=== PATIENT | female | born 1950 | race Caucasian/White ===

== ENCOUNTER → 2016-04-01 | Outpatient (CLI) | payer OTHER, MEDICARE ==
[~2016-04-01] VITALS: Ht 167.6 cm; Wt 78.7 kg
[~2016-04-01] MED LIST: ASPIRIN325 PO; ATORVASTATIN CA40 MG PO; BUSPIRONE HCL10 MG PO; CALCIUM 600 +1 EA15 PO; CALCIUM 600 +1 EAC5 PO; CALCIUM PO; CARAFATE 1 GM TA1 G1 PO; COLACE100 MG PO; CRANBERRY400 MG PO; DESYREL150 MG PO; ENDOCET 10-3251 EACH PO; ESTRACE0.5 MG PO; FIBER CHOICE C1.5 GM PO; FIBER SELECT G1 EACH PO; FISH OIL 1,0001 EAC5 PO; FISH OIL 1,0001 EAC7 PO; KAPIDEX60 MG PO; LYRICA 50 MG50 MG PO; LYRICA 75 MG CA75 MG PO; LYRICA150 MG PO; METHADONE HCL5 MG PO; MULTIVITAMINS1 EAC7 PO; NEURONTIN 300300 M1 PO; NEXIUM 40 MG CA40 M1 PO; OXECTA5 MG PO; OXYCONTIN20 MG PO; PERCOCET 10-321 EACH; PERCOCET 10-321 EACH PO; PRAVACHOL80 MG PO; PRAVASTATIN SOD20 MG PO; PREMARIN0.3 MG PO; PROBIOTIC1 EAC1; REGLAN 10 MG TA10 MG PO; RELACOR; RELACORE; RELAFEN500 MG PO; ROXICODONE5 M2 PO; ROXICODONE5 MG PO; TEGRETOL XR100 MG PO; TRAZODONE 150150 M1 PO; TRILEPTAL150 MG PO; TRILEPTAL300 MG PO; VITAMIN D1000 UNI1 PO; VITAMIN D31000 UNI2 PO; VITAMINC500; VOLTAREN GEL 1100 G2 TOP; VYTORIN 10-401 EACH PO; ZPAK PO
--- NOTE | ~2016-04-01 | HPC ---
[facility] [place] [address] PAIN MANAGEMENT CONSULTATION Name: ASTRID SOLITARIOSUMEET Hidalgo Room #: REG [facility] Yuliya.#: [id number] Admission: 04/01/16 Attend Phys: Mike Grnade DO Discharge: Date of : 49 Report #: [id number] THIS REPORT FOR: //name// CC: LOS Grande The patient is a delightful 66-year-old female being treated for left lower extremity neuropathic pain, chronic pain syndrome requiring complex medication management. Last seen in the pain clinic 12/15/2015. Urine drug screen at that time was positive for prescribed medication including oxcarbazepine, methadone and trazodone. Returns to pain clinic today, she actually went through some opiate withdrawal due to scheduling issues and recent snow. She had significant exacerbation of pain. Describing bilateral neuropathic pain, burning dysesthesia left greater than right ankle and feet, chronic throbbing, sharp, electric sensation. She feels like her feet are "on fire". Rates her pain at 5 on a 0-10 visual analog scale with medication. PHYSICAL EXAMINATION: Shows 66-year-old female, always pleasant, BMI is 28 kilograms per meter squared. Blood pressure is modestly elevated at 147/87, pulse 83, respirations are 20. Rises from chair using armrests, antalgic gait. Limited range of motion of left ankle, dysesthesia to light touch, allodynia and hyperpathia, gait is antalgic. Lumbar flexion is good. We reviewed the fact that opiate medications are being used to provide analgesia adequate to support activities of daily living, not attempting to achieve a specific pain score on the 0-10 Visual Analog Scale. The current opiate medications are providing sufficient analgesia to allow the patient to participate in activities of daily living. The patient is not exhibiting any aberrant behavior suggestive of drug diversion. The patient is not having any adverse reactions to medications. The patient is not suffering from daytime somnolence or mental acuity changes. The patient is managing opiate-induced constipation with appropriate pvci-pbl-gbxmjcp agents and dietary considerations. The patient was counseled on concern for caution with operating a motor vehicle while using opiate medications. A physical exam was performed and the patient's functional status was evaluated. All patients with back pain were advised against the bed rest greater than 4 days and were advised to return to normal activities. Pain score assessment was noted and the treatment plan was reviewed with the patient. All current medications, both prescribed and OTC were reviewed and reconciled on the electronic medical record. Tobacco screening was accomplished and smoking cessation was advised when indicated. BMI was noted and diet/exercise modification was recommended for all patients following outside normal parameters. I reviewed with the patient today their responsibilities to safeguard prescription medications, reviewed their responsibility to utilize medications [address] [address] PAIN MANAGEMENT CONSULTATION Name: OSCAR SOLITARIO Room #: REG CLDebra Hansen#: [id number] Admission: 04/01/16 Attend Phys: Mike Grande DO Discharge: Date of : 49 Report #: [id number] only as prescribed by the physician. They are to seek and receive pain medications only from 1 physician group ( [facility]). They are to use 1 pharmacy and keep the clinic informed if they change pharmacies. Their responsibilities include making followup visits in a timely fashion and to avoid abrupt discontinuation of medication usage. Their responsibilities further include bringing their medications (bottles from the pharmacy with residual pills) to the visit for possible confirmation of pill counts and the patient understands it is their responsibility to submit to random drug screens to ensure both that the medications prescribed are present, and that no other controlled substances are present. All prescriptions provided today were generated electronically. RECOMMENDATIONS: We had a prolonged visit today from 13:20-13:50, greater than 50% of this 25+ minute visit was spent counseling the patient. With increased neuropathic pain, we will initially of course get the patient back on her baseline opiate, methadone 5 mg b.i.d., oxycodone 5 mg p.r.n., 1 or 2 a day and Trileptal 150 mg 1 to 2 in the morning and 3 at bedtime. We did talk about possibly adding a calcium channel membrane stabilizing agent (Lyrica). We have tried this in the past, but it was fairly cost prohibitive and she had swelling with gabapentin. I am hopeful that since the medications have been commercially available for quite some time, the cost may be a little lower on her insurance plan. I have taken the liberty of giving her 50 mg samples for same. I may also give her 50 mg samples to trial on Lyrica. I gave her a prescription for 50 mg Lyrica 1 at bedtime. Renewed her other baseline medications. Follow up in 2 months for reevaluation. <ELECTRONICALLY SIGNED> By: Mike Grande DO 04/08/16 0858 [id number] Mike Grande DO /nt
[2016-04-01 13:08] VITALS: BP 147/87
== END | disposition home or self-care (01) ==
LOC: PAIN 03-08 07:08
DX: G89.4 Chronic pain syndrome (principal)

== ENCOUNTER → 2016-07-01 | Outpatient (CLI) | payer OTHER, MEDICARE ==
[~2016-07-01] VITALS: Ht 167.6 cm; Wt 81.6 kg
[~2016-07-01] MED LIST changes: +MOVANTIK25 MG PO; +TURMERIC
--- NOTE | ~2016-07-01 | HPC ---
[facility] [place] [address] [place] [address] PAIN MANAGEMENT CONSULTATION Name: ALTAFOSCAR Room #: REG Debra Hansen#: [id number] Admission: 07/01/16 Attend Phys: Mike Grande DO Discharge: Date of : 49 Report #: [id number] THIS REPORT FOR: //name// CC: LOS Grande The patient is a very pleasant 66-year-old female well known to pain clinic long, treated for axial back pain. Primary pain is left lower extremity ankle and foot pain status post multiple surgeries, chronic pain syndrome requiring complex medication management. She was last seen in the pain clinic 06/04/2016. She was actually seen by my partner, Dr. Saeed Grande for medication renewal. He continued on her baseline medication. She returns to pain clinic today for followup with me. Last urine drug screen 12/15/2015 was positive for prescribed medication. She notes ongoing pain remains problematic with a little opiate-induced constipation, but medications are quite helpful. Rates pain of 4/10. She is using her oxycodone very infrequently, in fact she does not require renewal of this. She does continue with her baseline methadone 5 mg b.i.d. and has continued with her membrane stabilizing agent, Trileptal (oxcarbazepine) 150 mg typically 2 in the morning and 3 at night. She notes she has good relief with the medication. Constipation has been a chronic issue for her for the past decade she has been on pain medicines, she notes she has a bowel movement every 3-4 days. She uses fiber, stool softener, fluid and bulk-forming agents. We reviewed the fact that opiate medications are being used to provide analgesia adequate to support activities of daily living, not attempting to achieve a specific pain score on the 0-10 Visual Analog Scale. The current opiate medications are providing sufficient analgesia to allow the patient to participate in activities of daily living. The patient is not exhibiting any aberrant behavior suggestive of drug diversion. The patient is not having any adverse reactions to medications. The patient is not suffering from daytime somnolence or mental acuity changes. The patient is managing opiate-induced constipation with appropriate rymw-bkc-pvfyyty agents and dietary considerations. The patient was counseled on concern for caution with operating a motor vehicle while using opiate medications. A physical exam was performed and the patient's functional status was evaluated. All patients with back pain were advised against the bed rest greater than 4 days and were advised to return to normal activities. Pain score assessment was noted and the treatment plan was reviewed with the patient. All current medications, both prescribed and OTC were reviewed and reconciled on the electronic medical record. Tobacco screening was accomplished and smoking cessation was advised when indicated. BMI was noted and diet/exercise modification was recommended for all patients following outside normal parameters. [address] [address] PAIN MANAGEMENT CONSULTATION Name: ALTAFOSCAR Room #: REG JORGE LUIS Hansen#: [id number] Admission: 07/01/16 Attend Phys: Mike Grande DO Discharge: Date of : 49 Report #: [id number] I reviewed with the patient today their responsibilities to safeguard prescription medications, reviewed their responsibility to utilize medications only as prescribed by the physician. They are to seek and receive pain medications only from 1 physician group ( [facility]). They are to use 1 pharmacy and keep the clinic informed if they change pharmacies. Their responsibilities include making followup visits in a timely fashion and to avoid abrupt discontinuation of medication usage. Their responsibilities further include bringing their medications (bottles from the pharmacy with residual pills) to the visit for possible confirmation of pill counts and the patient understands it is their responsibility to submit to random drug screens to ensure both that the medications prescribed are present, and that no other controlled substances are present. All prescriptions provided today were generated electronically. Physical exam shows a 66-year-old female, BMI is 29.1 kilograms per meter squared. Vital signs stable as noted in the EMR with modest hypertension (130/92). Today, she is wearing shoes. Ankle range of motion is actually pretty good in left lower extremity. Gait is generally tandem. Nominally antalgic. Some chronic left shoulder pain. She arthroscopy 2 years ago. She was told she needs total shoulder arthroplasty which she is loathe to move forward with further surgery. ASSESSMENT: Symptomatic chronic pain syndrome, axial back pain, left lower extremity pain requiring complex medication management, stable on baseline medication. RECOMMENDATIONS: Renew methadone 5 mg b.i.d., oxcarbazepine as noted above. The patient does not require oxycodone for breakthrough pain. I did give her samples of Movantik 25 mg and a prescription for same. If, however, this is too costly, we may consider Robertos (?). Follow up in 2 months for reevaluation. By: [id number] Mike Grande DO /nt
[2016-07-01 10:41] VITALS: BP 138/92
== END | disposition home or self-care (01) ==
LOC: PAIN 06:50
DX: G89.4 Chronic pain syndrome (principal); M54.9 Dorsalgia, unspecified; M79.662 Pain in left lower leg

== ENCOUNTER → 2016-09-30 | Outpatient (CLI) | payer OTHER, MEDICARE ==
[~2016-09-30] VITALS: Ht 167.6 cm; Wt 78.9 kg
[2016-09-30 11:10] VITALS: BP 155/93
== END | disposition home or self-care (01) ==
LOC: PAIN 06:43
DX: G62.9 Polyneuropathy, unspecified (principal); Z98.890 Other specified postprocedural states

== ENCOUNTER → 2016-12-05 | Outpatient (CLI) | payer OTHER, MEDICARE ==
[~2016-12-05] VITALS: Ht 167.6 cm; Wt 77.9 kg
[~2016-12-05] MED LIST changes: +AMBIEN5 MG PO; +CLONAZEPAM 0.50.5 M1 PO; +OMEPRAZOLE 20 M20 MG PO
--- NOTE | ~2016-12-05 | HPC ---
[facility] [place] [address] [place] [address] PAIN MANAGEMENT CONSULTATION Name: ALTAFOSCAR [id number] Admission: 12/05/16 Attend Phys: Mike Grande DO Discharge: Date of : 49 Report #: [id number] THIS REPORT FOR: //name// CC: Connie Grande The patient is a 66-year-old female, well known to pain clinic, typically treated for left lower extremity neuropathic pain, requiring high risk complex medication management. She has had multiple surgeries on that left ankle. She has had a spinal cord stimulator in and out. Currently, she notes pain is generally controlled with current medication, rates the pain a 4 on VAS. She has burning, aching, numb, throbbing sensation in the ankle and foot. To her credit, she continues to be quite active. She notes current medications are helpful, uses methadone 5 mg b.i.d. and oxycodone 5 mg 0-2 a day. Trileptal 150 mg 1-2 in the morning and 3 at night. She was started on Ambien recently, this has caused significant nightmare and agitation. PHYSICAL EXAMINATION: Shows a 66-year-old female, BMI is 27.7 kg/m2. Vital signs are stable as noted in the EMR. Alert and oriented to person, place and time, judged to be a reasonable historian. Rises from chair using armrest, moderately antalgic gait. Limited range of motion of the left ankle and foot. Hyperpathia, allodynia about the foot. Physical exam is otherwise unchanged. We reviewed the fact that opiate medications are being used to provide analgesia adequate to support activities of daily living, not attempting to achieve a specific pain score on the 0-10 Visual Analog Scale. The current opiate medications are providing sufficient analgesia to allow the patient to participate in activities of daily living. The patient is not exhibiting any aberrant behavior suggestive of drug diversion. The patient is not having any adverse reactions to medications. The patient is not suffering from daytime somnolence or mental acuity changes. The patient is managing opiate-induced constipation with appropriate cxof-vpe-ziodpad agents and dietary considerations. The patient was counseled on concern for caution with operating a motor vehicle while using opiate medications. A physical exam was performed and the patient's functional status was evaluated. All patients with back pain were advised against the bed rest greater than 4 days and were advised to return to normal activities. Pain score assessment was noted and the treatment plan was reviewed with the patient. All current medications, both prescribed and OTC were reviewed and reconciled on the electronic medical record. Tobacco screening was accomplished and smoking cessation was advised when indicated. BMI was noted and diet/exercise modification was recommended for all patients following outside normal [address] [address] PAIN MANAGEMENT CONSULTATION Name: OSCAR SOLITARIO Room #: REG CLDebra Hansen#: [id number] Admission: 12/05/16 Attend Phys: Mike Grande DO Discharge: Date of : 49 Report #: [id number] parameters. I reviewed with the patient today their responsibilities to safeguard prescription medications, reviewed their responsibility to utilize medications only as prescribed by the physician. They are to seek and receive pain medications only from 1 physician group ( [facility]). They are to use 1 pharmacy and keep the clinic informed if they change pharmacies. Their responsibilities include making followup visits in a timely fashion and to avoid abrupt discontinuation of medication usage. Their responsibilities further include bringing their medications (bottles from the pharmacy with residual pills) to the visit for possible confirmation of pill counts and the patient understands it is their responsibility to submit to random drug screens to ensure both that the medications prescribed are present, and that no other controlled substances are present. All prescriptions provided today were generated electronically. ASSESSMENT: Neuropathic pain, left lower extremity, requiring high risk complex medication management and the patient struggling with some sleep disorder presently. RECOMMENDATIONS: Continue methadone 5 mg b.i.d. Continue oxycodone 5 mg 0-2 a day. Continue Trileptal 150 mg 2 in the morning and 3 at night. Lastly, we will have the patient discontinue Ambien. We will trial clonazepam 0.5 mg at bedtime p.r.n. sleep, not to be used on a daily basis. Limit 20 tablets for 30 days. I have generated a prescription today for 3 months, follow up at that time, earlier if needed. By: 1530 21 Mike Grande DO /nt
[2016-12-05 11:14] VITALS: BP 137/76
== END | disposition home or self-care (01) ==
LOC: PAIN 06:15
DX: Z76.0 Encounter for issue of repeat prescription (principal); M79.662 Pain in left lower leg; G89.29 Other chronic pain; G47.9 Sleep disorder, unspecified; Z79.891 Long term (current) use of opiate analgesic; Z98.890 Other specified postprocedural states; Z79.82 Long term (current) use of aspirin; Z79.899 Other long term (current) drug therapy

== ENCOUNTER → 2017-03-31 | Outpatient (CLI) | payer OTHER, MEDICARE ==
[~2017-03-31] VITALS: Ht 167.6 cm; Wt 78.2 kg
[~2017-03-31] MED LIST changes: +PROTONIX40 M1 PO
--- NOTE | ~2017-03-31 | HPC ---
[facility] [place] [address] PAIN MANAGEMENT CONSULTATION Name: OSCAR SOLITARIO Room #: REG JORGE LUIS HaneyClaireArron.#: [id number] Admission: 03/31/17 Attend Phys: Mike Grande DO Discharge: Date of : 49 Report #: [id number] THIS REPORT FOR: //name// CC: Connie Grande DATE OF SERVICE: 03/31/2017 HISTORY OF PRESENT ILLNESS: The patient is a very pleasant 67-year-old female, long treated for left lower extremity neuropathic pain requiring high risk complex medication management. The patient has had multiple surgeries on her left ankle. Ultimately, stable on methadone 5 mg b.i.d. with oxycodone 5 mg for breakthrough pain, limit 60 tablets for 30 days. Trileptal 150 mg 1-2 in the morning, 3 at night. Typically, 5 tablets a day. We had switched her from Ambien to clonazepam last visit and ultimately, the patient stopped taking this medication. She struggles with some insomnia. States she is able to generate sleep, but wakes later. To her credit, I elected to eschew use of the soporific agent. She returns to pain clinic today noting pain is about a 2 on a VAS, chronic left ankle and foot pain remains problematic, but the patient continues to participate in activities of daily living. She notes walking and standing in cold weather do exacerbate her chronic, sharp, burning, throbbing pain. PHYSICAL EXAMINATION: GENERAL: Shows a pleasant 67-year-old female with BMI is 27.8 kilograms per meter squared. VITAL SIGNS: Stable as noted in the EMR. MUSCULOSKELETAL: Status post multiple surgeries, 12 in the left foot, 3 on the right. Rises from chair using the armrest. Gait is modestly antalgic. Limited range of motion, primarily left foot and ankle. Otherwise, physical exam is relatively unremarkable. ASSESSMENT: Chronic pain syndrome requiring high risk complex medication management, neuropathic pain, left lower extremity, stable on baseline medication. RECOMMENDATION: Renew current medication including methadone 5 mg b.i.d., oxycodone 5 mg 1 tablet b.i.d. as needed for breakthrough pain. We reviewed the fact that opiate medications are being used to provide analgesia adequate to support activities of daily living, not attempting to achieve a specific pain score on the 0-10 Visual Analog Scale. The current opiate medications are providing sufficient analgesia to allow the patient to participate in activities of daily living. The patient is not exhibiting any aberrant behavior suggestive of drug diversion. [place] [address] PAIN MANAGEMENT CONSULTATION Name: OSCAR SOLITARIO Room #: REG [facility] Yuliya.#: [id number] Admission: 03/31/17 Attend Phys: Mike Grande DO Discharge: Date of : 49 Report #: [id number] adverse reactions to medications. The patient is not suffering from daytime somnolence or mental acuity changes. The patient is managing opiate-induced constipation with appropriate pjej-pmn-eshavmc agents and dietary considerations. The patient was counseled on concern for caution with operating a motor vehicle while using opiate medications. A physical exam was performed and the patient's functional status was evaluated. All patients with back pain were advised against the bed rest greater than 4 days and were advised to return to normal activities. Pain score assessment was noted and the treatment plan was reviewed with the patient. All current medications, both prescribed and OTC were reviewed and reconciled on the electronic medical record. Tobacco screening was accomplished and smoking cessation was advised when indicated. BMI was noted and diet/exercise modification was recommended for all patients following outside normal parameters. I reviewed with the patient today their responsibilities to safeguard prescription medications, reviewed their responsibility to utilize medications only as prescribed by the physician. They are to seek and receive pain medications only from 1 physician group ( [facility]). They are to use 1 pharmacy and keep the clinic informed if they change pharmacies. Their responsibilities include making followup visits in a timely fashion and to avoid abrupt discontinuation of medication usage. Their responsibilities further include bringing their medications (bottles from the pharmacy with residual pills) to the visit for possible confirmation of pill counts and the patient understands it is their responsibility to submit to random drug screens to ensure both that the medications prescribed are present, and that no other controlled substances are present. All prescriptions provided today were generated electronically. <ELECTRONICALLY SIGNED> By: Mike Grande DO 04/02/17 0721 [id number] Mike Grande DO /nt
[2017-03-31 10:46] VITALS: BP 132/74
== END ==
LOC: PAIN 06:53
DX: G89.4 Chronic pain syndrome (principal); M79.662 Pain in left lower leg; M79.2 Neuralgia and neuritis, unspecified; Z79.899 Other long term (current) drug therapy; Z98.890 Other specified postprocedural states

== ENCOUNTER → 2017-12-15 | Outpatient (CLI) | payer OTHER, MEDICARE ==
[~2017-12-15] VITALS: Ht 167.6 cm; Wt 77.1 kg
--- NOTE | ~2017-12-15 | HPC ---
[facility] [place] [address] PAIN MANAGEMENT CONSULTATION Name: OSCAR SOLITARIO Room #: REG JORGE LUIS Dwyer.#: [id number] Admission: 12/15/17 Attend Phys: Vimal Colorado MD Discharge: Date of : 49 Report #: [id number] THIS REPORT FOR: //name// CC: Vimal Roberson DATE OF SERVICE: 12/15/2017 Followup visit for chronic left foot pain. The patient is a 67-year-old patient I am seeing for the first time. She has been a longstanding patient of our clinic, followed by Dr. Mike Grande since 2008 for left lower extremity pain originally diagnosed as RSD. She now has primarily neuropathic pain that has been treated with medicines now for many years. Her current regimen has been most effective. Dr. Grande's notes reflect this and also the patient. She currently scores her pain as manageable 6/10 and is getting by on a very reasonable dose of methadone 5 mg twice a day and oxycodone 5 mg twice a day for breakthrough pain. She uses this relatively infrequently because of the good medication result from methadone. This is consistent with our clinics experience with neuropathic pain, many of our patients doing best on this nice long acting medication. She and her have recently moved from [place] to [place], [place], [place] [facility]. 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 It was goal of theirs to leave the city. When I asked if this was due to family, she said no. They simply looked for a place that was more peaceful and quiet. She has not established a physician in her new area. She reports to me that she has had 12 surgeries on her left foot between the years 1999 and 2008. This has left her with a constant daily pain that is worse with standing and weightbearing and she needs to wear only a certain type of shoe and sock. She has shown no misuse or abuse of her medications. No history of addictions. Her opioid risk tool was completed with a 0 score. We have discussed the opioid crisis in the [place], the proper use of medication and the CDC guideline. Her MME is calculated at 60 primarily because of the high ratio of methadone 4:1 established in the MME calculations. PQRS review shows no history of arthritis, a BMI of 27.5, a blood pressure of 151/93, heart rate 56 and she is currently not under treatment for hypertension. She is not a fall risk. She is considered very low risk for addiction. She signed an opioid agreement on 09/04/2015 and has completed both the risk tool and a functional assessment tool at . She denies use of tobacco or [address] [address] PAIN MANAGEMENT CONSULTATION Name: OSCAR SOLITARIO Room #: REG JORGE LUIS Hansen#: [id number] Admission: 12/15/17 Attend Phys: Vimal Colorado MD Discharge: Date of : 49 Report #: [id number] alcohol. IMPRESSION: 1. Chronic left foot pain with history of complex regional pain syndrome, now with neuropathic pain. She has had multiple surgeries. 2. Management of high risk medications. PLAN: I will renew her medication for her for [address] Grande's recommendations. She was last seen in June. Medication actually lasted a month or so longer as she reduced her breakthrough medication. I plan to see her back in the clinic sometime in February. By: [id number] Vimal Colorado MD /nt
[2017-12-15 12:25] VITALS: BP 151/93
== END ==
LOC: PAIN 06:35
DX: M79.672 Pain in left foot (principal); G89.29 Other chronic pain; Z79.899 Other long term (current) drug therapy

== ENCOUNTER → 2018-03-26 | Outpatient (CLI) | payer OTHER, MEDICARE ==
[~2018-03-26] VITALS: Ht 167.6 cm; Wt 81.6 kg
[~2018-03-26] MED LIST changes: +APPLE CIDER VI1 EAC1 PO
[2018-03-26 12:59] VITALS: BP 129/79
--- NOTE | 2018-03-26 13:10 | NUR ---
Pain Clinic Assessment: 1. History of Osteoarthritis: Not Applicable History of Rheumatoid Arthritis: Not Applicable 2. Height: 5 ft. 6 in. 167.6 cm. Weight: 179.8 lb. oz. 81.557 kg. Patient's BMI: 29.0 3. Vital Signs: BP: 129/79 Pulse: 77 Resp: 16 Temp: 02 Sat: 100 ECG Mon: 4. Pain Intensity: 10 5. Fall Risk: Dizziness: N Needs help standing or walking: N Fallen in the last 3 months: Y Fall risk comments: 6. Patient on Blood Thinner: None 7. History of Hypertension: N 8. Opioid Therapy greater than 6 weeks: Y Opiate Contract Signed: 09/04/15 9. Risk Assessment Tool Provided: Opioid Risk Tool 10. Functional Assessment Tool: 11. Recreational Drug Use: Never Drug Type: Tobacco Use: Never Smoker Tobacco Type: Amount or Packs/day: How Many Years: Alcohol Use: No Frequency: Quant:
--- NOTE | 2018-03-27 07:29 | HPC ---
[facility] [place] [address] PAIN MANAGEMENT CONSULTATION Name: OSCAR SOLITARIO Room #: REG Debra Tyrone#: [id number] Admission: 03/26/18 Attend Phys: Denita Hunt Discharge: Date of : 48 Report #: [id number] THIS REPORT FOR: //name// CC: Denita Hunt Connie Roberson DATE OF SERVICE: 03/26/2018 CHIEF COMPLAINT: Chronic left foot pain. HISTORY OF PRESENT ILLNESS: This is a 68-year-old female with a longstanding history in the pain clinic, followed by Dr. Mike Grande and then Dr. Vimal Colorado, here for a refill of her current pain medicines. She has been treated for left lower extremity pain and left foot pain. She tells me that her pain is 10/10 today, mostly in her neck and her left foot. She tells me that she fell about 3 weeks ago down a ramp. She has been seeing a chiropractor and he has been using a activator on her. She is set to have x-rays next week again with him. She has been seeing him 3 times a week. She tells me that is where most of her pain is except for her left foot. She tells me that the cold weather has made her foot pain worse, also with walking and standing. The medications are helpful in elevating her leg by the end of the night. Her left foot is very painful. The patient tells me she has burning, aching, numbness in her foot and some restless leg symptoms. She would like a refill of her current medications. She tells me the methadone and Trileptal are very helpful. CURRENT ALLERGIES: None. CURRENT MEDICATIONS: Apple cider vinegar 2 tablets a day, oxycodone 5 mg twice a day, oxcarbazepine 2 in the morning and 3 at night, methadone 5 mg twice a day, Protonix 40 mg daily, Turmeric daily, probiotic daily, fibers like gummies daily, calcium 600 mg daily, atorvastatin 40 mg daily, multivitamin daily and aspirin 325 daily. PQRS: 1. No history of osteoarthritis or rheumatoid arthritis. 2. Height is 5 feet 6 inches, weight is 179, BMI is 29. 3. Vital signs: Blood pressure 129/79, pulse is 77, respirations 16, oxygen sat is 100. 4. Pain score is 10. 5. Fall risk. She denies dizziness, does not need help walking or standing and has not fallen in the last 3 months. 6. The patient does not take any blood thinners and does have a history of hypertension. 7. Opioid therapy is greater than 6 weeks. Therefore, an opioid signed contract is on the chart. 8. Her risk assessment tool is low. Her functional assessment is 29/70. [place] [address] PAIN MANAGEMENT CONSULTATION Name: OSCAR SOLITARIO Room #: REG JORGE LUIS Hansen#: [id number] Admission: 03/26/18 Attend Phys: Denita Hunt Discharge: Date of : 48 Report #: [id number] 9. The patient's recreational drug use, she denies. She is not a smoker and she does not drink alcohol. We did check the prescription monitoring system. The patient is filling prescriptions appropriately on time and she has a recent drug screen on the chart that is appropriate for the medications that she is being prescribed. The patient tells me that she does safeguard her medications. PHYSICAL EXAMINATION: GENERAL: This is a well-developed, well-nourished 68-year-old female who appears her stated age. She is alert and orientated. Her affect is appropriate. HEENT: Normocephalic, atraumatic. Extraocular eye muscles are intact. Mucous membranes are moist. Hearing is adequate. NECK: No JVD or adenopathy. Complains of tenderness at the base of her neck from recent fall. MUSCULOSKELETAL: Rises from chair using armrest. Her gait is tandem. Tenderness in her left foot, on the outer aspect of the ball of her left foot. DIAGNOSTIC IMPRESSION: 1. Chronic left foot pain with history of complex regional pain syndrome. 2. Neuropathic pain. 3. Management of high risk medications. We reviewed the fact that opiate medications are being used to provide analgesia adequate to support activities of daily living, not attempting to achieve a specific pain score on the 0-10 Visual Analog Scale. The current opiate medications are providing sufficient analgesia to allow the patient to participate in activities of daily living. The patient is not exhibiting any aberrant behavior suggestive of drug diversion. The patient is not having any adverse reactions to medications. The patient is not suffering from daytime somnolence or mental acuity changes. The patient is managing opiate-induced constipation with appropriate qrxv-nlz-apyfrgr agents and dietary considerations. The patient was counseled on concern for caution with operating a motor vehicle while using opiate medications. A physical exam was performed and the patient's functional status was evaluated. All patients with back pain were advised against the bed rest greater than 4 days and were advised to return to normal activities. Pain score assessment was noted and the treatment plan was reviewed with the patient. All current medications, both prescribed and OTC were reviewed and reconciled on the electronic medical record. Tobacco screening was accomplished and smoking cessation was advised when indicated. BMI was noted and diet/exercise modification was recommended for all patients following outside normal parameters. I reviewed with the patient today their responsibilities to safeguard prescription medications, reviewed their responsibility to utilize medications [facility] [address] [place] [address] PAIN MANAGEMENT CONSULTATION Name: OSCAR SOLITARIO Room #: REG JORGE LUIS Tyrone#: [id number] Admission: 03/26/18 Attend Phys: Denita Hunt Discharge: Date of : 48 Report #: [id number] only as prescribed by the physician. They are to seek and receive pain medications only from 1 physician group ( [facility]). They are to use 1 pharmacy and keep the clinic informed if they change pharmacies. Their responsibilities include making followup visits in a timely fashion and to avoid abrupt discontinuation of medication usage. Their responsibilities further include bringing their medications (bottles from the pharmacy with residual pills) to the visit for possible confirmation of pill counts and the patient understands it is their responsibility to submit to random drug screens to ensure both that the medications prescribed are present, and that no other controlled substances are present. All prescriptions provided today were generated electronically. PLAN: 1. The patient returned to the pain clinic today and we discussed treatment options. The patient tells me that she has had problems with constipation in the past, has recently started taking apple cider vinegar, takes one tablet in the morning and one tablet at night. The patient tells me she has bowel movements at least 2-3 times a day and is feeling significantly better from a constipation standpoint since the start of this medication. 2. The patient requests refill of her current medications. Scripts given today were her Trileptal 150 mg tablets, quantity 150 to take as directed; oxycodone 1 tablet twice a day, quantity 60 for today, for an 8-week release and methadone 5 mg tablets twice a day, #60 for today, for an 8-week release. We discussed the CDC guidelines. The patient falls within the 90 MME or lower, so 3 months of medication is appropriately for her. Her MME is calculated to be 60 MME. 3. The patient is going to [place] in April. We discussed that she may need a vacation fill of her medications prior to this trip. The patient will call as needed. She is unsure of the dates at this time. 4. The patient will be seen in 3-months time period for medications. Care given today under the collaboration with Dr. Vimal Colorado. <ELECTRONICALLY SIGNED> By: Denita Hunt 03/27/18 0729 [id number] Denita Hunt /alysha
== END ==
LOC: PAIN 07:33
DX: M79.672 Pain in left foot (principal); G89.29 Other chronic pain; G62.9 Polyneuropathy, unspecified; Z79.899 Other long term (current) drug therapy

== ENCOUNTER → 2018-07-02 | Outpatient (CLI) | payer OTHER, MEDICARE ==
[~2018-07-02] VITALS: Ht 167.6 cm; Wt 80.2 kg
[~2018-07-02] MED LIST changes: +OXCARBAZEPINE150 MG PO; +TURMERIC COMPL1 EACH PO
[2018-07-02 10:06] VITALS: BP 147/85
--- NOTE | 2018-07-03 07:31 | HPC ---
[facility] [place] [address] PAIN MANAGEMENT CONSULTATION Name: ALTAFOSCAR CONDON Room #: REG JORGE LUIS Hansen#: [id number] Admission: 07/02/18 ������������������ Attend Phys: Denita Hunt Discharge: ������������������ Date of : 48 Report #: [id number] THIS REPORT FOR: //name// CC: Denita Hunt Connie Roberson DATE OF SERVICE: 07/02/2018 CHIEF COMPLAINT: Chronic left foot pain. HISTORY OF PRESENT ILLNESS: This is a very pleasant 68-year-old female who returns to the pain clinic today for a refill of her medications. She tells me that she is doing much better now that the winter has subsided. She tells me she does much better in the warmer weather. She has been busy working outside around their property and she is feeling much better, though today, she is rating her pain score 7/10, which she tells me is a good day. She does have some burning, aching, numbness in her bilateral feet. She said it is worse with walking, standing in cold weather but medication and elevating her legs at the end of the day are helpful. She denies any constipation. She takes some Fiber Choice and some stool softener daily. She tells me that she is not sleeping well at night and unsure what is causing that. She has tried lots of toca-aby-tkwkklp aids. She is hopeful that with all the physical exercise that she will be doing outside now that the weather is better that she will be sleeping better. She would like a refill of her medications today. ALLERGIES: No known drug allergies. MEDICATIONS: Turmeric daily, apple cider vinegar plus twice a day, oxycodone 5 mg b.i.d., Trileptal 150 mg 1 in the morning and 2 at night, methadone 5 mg b.i.d., Protonix 40 mg daily, lactobacillus daily, fibers like gummy tablets daily, calcium 600 plus D daily, atorvastatin 40 mg at bedtime, multivitamin daily and aspirin 325 mg at bedtime. PQRS: 1. She denies any history of osteoarthritis or rheumatoid arthritis. 2. Height is 5 feet 6 inches, weight is 176 and BMI is 28. 3. VITAL SIGNS: Blood pressure 147/85, pulse is 58, respirations 16 and oxygen sat 100. 4. Pain score 7/10. 5. Denies dizziness. Does not need help walking or standing and is not falling in the last 3 months. 6. The patient is not on any blood thinners and does not take medicines for hypertension. 7. Opioid therapy is greater than 6 weeks; therefore, an opioid signed contract is on the chart. Risk assessment tool is low. Her functional assessment . [address] [address] PAIN MANAGEMENT CONSULTATION Name: ALTAFOSCAR CONDON Room #: REG CLDebra Hansen#: [id number] Admission: 07/02/18 ������������������ Attend Phys: Denita Hunt Discharge: ������������������ Date of : 48 Report #: [id number] 8. Recreational drug use, she denies. She is not a smoker and does not drink alcohol. We did check the prescription monitoring system. The patient is filling appropriately her medications from Dr. Vimal Colorado. There is a recent drug screen on the chart that is appropriate for her medications. She tells me she does safeguard her medications as well. PHYSICAL EXAMINATION: GENERAL: This is a well-developed, well-nourished 68-year-old female who appears slightly younger than her stated age. She is alert and orientated and her affect is appropriate. HEENT: Normocephalic and atraumatic. Extraocular eye muscles are intact. Mucous membranes are moist. Hearing is adequate. NECK: No JVD or adenopathy. MUSCULOSKELETAL: Complains of tenderness in her left foot on the outer aspect of her lateral foot. She rises from the chair using her armrests. Her gait is slightly antalgic. ASSESSMENT: 1. Chronic left foot pain with history of complex regional pain syndrome. 2. Neuropathic pain. 3. Management of high risk medication including methadone treatment. We reviewed the fact that opiate medications are being used to provide analgesia adequate to support activities of daily living, not attempting to achieve a specific pain score on the 0-10 Visual Analog Scale. The current opiate medications are providing sufficient analgesia to allow the patient to participate in activities of daily living. The patient is not exhibiting any aberrant behavior suggestive of drug diversion. The patient is not having any adverse reactions to medications. The patient is not suffering from daytime somnolence or mental acuity changes. The patient is managing opiate-induced constipation with appropriate hfog-kei-xfextsf agents and dietary considerations. The patient was counseled on concern for caution with operating a motor vehicle while using opiate medications. A physical exam was performed and the patient's functional status was evaluated. All patients with back pain were advised against the bed rest greater than 4 days and were advised to return to normal activities. Pain score assessment was noted and the treatment plan was reviewed with the patient. All current medications, both prescribed and OTC were reviewed and reconciled on the electronic medical record. Tobacco screening was accomplished and smoking cessation was advised when indicated. BMI was noted and diet/exercise modification was recommended for all patients following outside normal parameters. [address] [address] PAIN MANAGEMENT CONSULTATION Name: OSCAR SOLITARIO [id number] Admission: 07/02/18 ������������������ Attend Phys: Denita Hunt Discharge: ������������������ Date of : 48 Report #: [id number] I reviewed with the patient today their responsibilities to safeguard prescription medications, reviewed their responsibility to utilize medications only as prescribed by the physician. They are to seek and receive pain medications only from 1 physician group ( [facility]). They are to use 1 pharmacy and keep the clinic informed if they change pharmacies. Their responsibilities include making followup visits in a timely fashion and to avoid abrupt discontinuation of medication usage. Their responsibilities further include bringing their medications (bottles from the pharmacy with residual pills) to the visit for possible confirmation of pill counts and the patient understands it is their responsibility to submit to random drug screens to ensure both that the medications prescribed are present, and that no other controlled substances are present. All prescriptions provided today were generated electronically. PLAN: 1. We discussed treatment options with the patient today. The patient tells me that she is doing quite well and would like a refill of her medications. A script was given today for oxycodone 5 mg #60 for today release, 4-week release and 8-week release and methadone 5 mg tablets twice a day, #60 for today release, 4-week release and 8-week release. This places the patient's morphine milliequivalent per the CDC guidelines at 60. 2. Oxcarbazepine. The patient was taking two in the morning and three at night for 5 total a day of 150 mg, but she tells me she has decreased that to 1 in the morning and 2 at night, so therefore, we will decrease that prescription to #90 tablets with 2 additional refills. If the patient finds out that she is having more difficulty without the extra medication, we will gladly call in her previous dose. 3. Dr. Vimal Colorado did come and see the patient today and collaborated with care. The patient will return in 3 months' time. ��������������������������������������������� <ELECTRONICALLY SIGNED> ���������������������������������������� By: Denita Hunt ��������������������������������������������� 07/03/18 0731 [id number] Denita Hunt /alysha
== END ==
LOC: PAIN 06:56
DX: G90.522 Complex regional pain syndrome I of left lower limb (principal); G62.9 Polyneuropathy, unspecified; Z79.899 Other long term (current) drug therapy

== ENCOUNTER → 2018-10-15 | Outpatient (CLI) | payer OTHER, MEDICARE ==
[~2018-10-15] VITALS: Ht 167.6 cm; Wt 80.2 kg
[~2018-10-15] MED LIST changes: +OMEGA-31000 M1 PO
[2018-10-15 13:17] VITALS: BP 150/88
--- NOTE | 2018-10-15 13:32 | NUR ---
Pain Clinic Assessment: 1. History of Osteoarthritis: Not Applicable History of Rheumatoid Arthritis: Not Applicable 2. Height: 5 ft. 6 in. 167.6 cm. Weight: 176.8 lb. oz. 80.196 kg. Patient's BMI: 28.5 3. Vital Signs: BP: 150/88 Pulse: 73 Resp: 20 Temp: 02 Sat: 100 ECG Mon: 4. Pain Intensity: 7 5. Fall Risk: Dizziness: Y Needs help standing or walking: N Fallen in the last 3 months: N Fall risk comments: 6. Patient on Blood Thinner: None 7. History of Hypertension: N 8. Opioid Therapy greater than 6 weeks: Y Opiate Contract Signed: 09/04/15 9. Risk Assessment Tool Provided: Montse 10. Functional Assessment Tool: 11. Recreational Drug Use: Never Drug Type: Tobacco Use: Never Smoker Tobacco Type: Amount or Packs/day: How Many Years: Alcohol Use: No Frequency: Quant:
--- NOTE | 2018-10-16 07:15 | HPC ---
[facility] [address] [place] [address] PAIN MANAGEMENT CONSULTATION Name: OSCAR SOLITARIO Room #: REG JORGE LUIS Tyrone#: [id number] Admission: 10/15/18 ������������������ Attend Phys: Denita Hunt Discharge: ������������������ Date of : 48 Report #: [id number] THIS REPORT FOR: //name// CC: Denita NUR Physician staff Connie Roberson MD DATE OF SERVICE: 10/15/2018 CHIEF COMPLAINT: Chronic left foot pain. HISTORY OF PRESENT ILLNESS: This is a very pleasant 68-year-old female who returns to the pain clinic today for refill of her medications that she uses to help with her chronic foot pain as a result of complex regional pain syndrome. She tells me that her pain is a 7/10 today in her feet. It is a sharp, aching, burning, electrical feeling, worse with walking and standing. Her medication is helpful in controlling that pain. The patient tells me that she has had some strange sensations in her hands. She feels like the nerves are firing and feels like her hands have been on fire. She had to use ice to cool them down. She also has pain between her shoulder blades and her left leg has been tender. She feels like she has a creepy crawling sensation all over her lower back especially at the base of her neck and occasionally feels like she has a sunburn abdomen though despite being out in the sun. She tells me the symptoms are worse at night. She does have a clammy filling occasionally at night, almost such as hot flashes that she will get hot and cold throughout the night, though she has been postmenopausal for several years and has not taken any estrogen products. The patient is wondering if this is a nerve related from her neck or her lumbar spine. ALLERGIES: No known drug allergies. CURRENT LIST OF MEDICATIONS: Oxycodone 5 mg b.i.d. p.r.n., methadone 5 mg b.i.d., omega-3, oxcarbazepine 150 mg 1 in the morning and 2 at night, turmeric, apple cider vinegar, Protonix, probiotic, fiber, calcium, multivitamin, aspirin and Lipitor 40 mg at bedtime. PQRS: 1. She denies osteoarthritis or rheumatoid arthritis. 2. Height is 5 feet 6 inches, weight is 176, BMI is 28. 3. VITAL SIGNS: Blood pressure 158/88, pulse is 73, respirations 20, oxygen sat is 100%. 4. Pain score is 7/10. 5. Complains of slight dizziness, does not need help walking or standing, has not fallen in the last 3 [place] [address] PAIN MANAGEMENT CONSULTATION Name: OSCAR SOLITARIO Room #: REG CLDebra Hansen#: [id number] Admission: 10/15/18 ������������������ Attend Phys: Denita Hunt Discharge: ������������������ Date of : 48 Report #: [id number] 6. The patient is not on any blood thinners or hypertension medicines. 7. Opioid therapy is greater than 6 weeks; therefore, an opioid signed contract is on the chart. Her risk assessment tool is low. Functional assessment is 22/70. 8. Recreational drug use, she denies. She is not a smoker and does not drink alcohol. According to the prescription monitoring system, the patient is filling appropriately for her medications. She is due next week for those medicines. There is also a drug screen on the chart that is appropriate for her medications. PHYSICAL EXAMINATION: GENERAL: This is a well-developed, well-nourished 68-year-old female who appears her stated age, placing her current pain score at 7/10. She is younger looking than her stated age. She is alert and orientated. HEENT: Normocephalic, atraumatic. Extraocular eye muscles are intact. Mucous membranes are moist. NECK: Without JVD or adenopathy. Complains of creepy crawly sensations at the base of her neck that increase at bedtime. MUSCULOSKELETAL: She has tenderness in the left part of her outer aspect of her foot. She is wearing a sock on that left foot today despite being in sandals. She rises from the chair using the armrest. Her gait is slightly antalgic. ASSESSMENT: 1. Complains of hands on fire intermittently, though not present currently at this moment and also tenderness in her shoulder blades across the thoracic region. 2. Chronic leg pain with history of complex regional pain syndrome. 3. Neuropathic pain. 4. Failed spinal cord stimulator x 2. 5. Management of high risk medications including methadone treatment. We reviewed the fact that opiate medications are being used to provide analgesia adequate to support activities of daily living, not attempting to achieve a specific pain score on the 0-10 Visual Analog Scale. The current opiate medications are providing sufficient analgesia to allow the patient to participate in activities of daily living. The patient is not exhibiting any aberrant behavior suggestive of drug diversion. The patient is not having any adverse reactions to medications. The patient is not suffering from daytime somnolence or mental acuity changes. The patient is managing opiate-induced constipation with appropriate vugf-dmp-fbwhpbh agents and dietary considerations. The patient was counseled on concern for caution with operating a motor vehicle while using opiate medications. A physical exam was performed and the patient's functional status was evaluated. [facility] [address] [place] [address] PAIN MANAGEMENT CONSULTATION Name: OSCAR SOLITARIO Room #: REG JORGE LUIS Yuliya.#: [id number] Admission: 10/15/18 ������������������ Attend Phys: Denita ARACELIS Hunt Discharge: ������������������ Date of : 48 Report #: [id number] All patients with back pain were advised against the bed rest greater than 4 days and were advised to return to normal activities. Pain score assessment was noted and the treatment plan was reviewed with the patient. All current medications, both prescribed and OTC were reviewed and reconciled on the electronic medical record. Tobacco screening was accomplished and smoking cessation was advised when indicated. BMI was noted and diet/exercise modification was recommended for all patients following outside normal parameters. I reviewed with the patient today their responsibilities to safeguard prescription medications, reviewed their responsibility to utilize medications only as prescribed by the physician. They are to seek and receive pain medications only from 1 physician group ( [facility]). They are to use 1 pharmacy and keep the clinic informed if they change pharmacies. Their responsibilities include making followup visits in a timely fashion and to avoid abrupt discontinuation of medication usage. Their responsibilities further include bringing their medications (bottles from the pharmacy with residual pills) to the visit for possible confirmation of pill counts and the patient understands it is their responsibility to submit to random drug screens to ensure both that the medications prescribed are present, and that no other controlled substances are present. All prescriptions provided today were generated electronically. PLAN: 1. I discussed treatment options with the patient today as well as Dr. Colorado. He was present for part of the visit. He did not think that the feelings that the patient is experiencing in her hands, neck and abdomen are spine related. He is wondering if it maybe a metabolic imbalance. We encouraged the patient to have her thyroid level checked as well as her hormone levels to see if that may be abnormal presently. 2. We also discussed restless legs syndrome and to discuss this with her primary care doctor as well. Scripts given today for her methadone 5 mg b.i.d. and oxycodone 5 mg b.i.d. #60, both these medicines were released today and 4-week and 8-week refills. 3. Trileptal 150 mg 1 in the morning and 2 at night, quantity 90 with 2 additional refills was also given. The patient was seen by Dr. Vimal Colorado who collaborated care today. The patient will follow up in 3 months if not sooner as needed. ��������������������������������������������� <ELECTRONICALLY SIGNED> ���������������������������������������� By: Denita Hunt ��������������������������������������������� 10/16/18 0715 1400 1428 Denita Hunt /alysha
== END ==
LOC: PAIN 06:57
DX: M79.672 Pain in left foot (principal); M79.2 Neuralgia and neuritis, unspecified; Z79.891 Long term (current) use of opiate analgesic

== ENCOUNTER → 2019-03-01 | Outpatient (CLI) | payer OTHER, MEDICARE ==
[~2019-03-01] VITALS: Ht 167.6 cm; Wt 79.3 kg
[2019-03-01 10:08] VITALS: BP 140/75
--- NOTE | 2019-03-01 10:15 | NUR ---
Pain Clinic Assessment: 1. History of Osteoarthritis: Not Applicable History of Rheumatoid Arthritis: Not Applicable 2. Height: 5 ft. 6 in. 167.6 cm. Weight: 174.8 lb. oz. 79.289 kg. Patient's BMI: 28.2 3. Vital Signs: BP: 140/75 Pulse: 69 Resp: 16 Temp: 02 Sat: 100 ECG Mon: 4. Pain Intensity: 5 5. Fall Risk: Dizziness: N Needs help standing or walking: N Fallen in the last 3 months: N Fall risk comments: 6. Patient on Blood Thinner: None 7. History of Hypertension: N 8. Opioid Therapy greater than 6 weeks: Y Opiate Contract Signed: 09/04/15 9. Risk Assessment Tool Provided: Montse 10. Functional Assessment Tool: 11. Recreational Drug Use: Never Drug Type: Tobacco Use: Never Smoker Tobacco Type: Amount or Packs/day: How Many Years: Alcohol Use: No Frequency: Quant:
--- NOTE | 2019-03-02 11:01 | HPC ---
[facility] [place] [address] PAIN MANAGEMENT CONSULTATION Name: OSCAR SOLITARIO Room #: REG [facility] Yuliya.#: [id number] Admission: 03/01/19 Attend Phys: Denita Hunt Discharge: Date of : 48 Report #: [id number] THIS REPORT FOR: //name// CC: Denita Marquis MD Physician staff Vimal Roberson MD DATE OF SERVICE: 03/01/2019 CHIEF COMPLAINT: Chronic left foot pain. HISTORY OF PRESENT ILLNESS: This is a very pleasant 69-year-old female who returns to the pain clinic today for refill of her medications. She is very tearful throughout this visit. She has reported to us that her left her in May, drove off in his RV and has not returned. She was here for a visit in August, but at that time, she thought he was going to be returning and he has not, so she has moved to an apartment and restarted working at [employer]. She finds that this job has been very beneficial for her keeping her mind occupied but also she is enjoying it. She used to work their 11 years ago prior to this marriage. She finds that her pain is elevated when she leaves work and it does take a while to calm down, but mostly, she has been enjoying this and been able to tolerate the pain throughout the day by taking her methadone in the morning and an oxycodone during her working hours. She reports a pain score 5/10 today, again it is in her bilateral feet that is an achy, burning, numbness. She feels that elevating her legs and using her medication at the end of the day is very beneficial. She denies any problems with daytime sleepiness or constipation. ALLERGIES: No known drug allergies. CURRENT LIST OF MEDICATIONS: Oxycodone 5 mg p.r.n., methadone 5 mg b.i.d., oxcarbazepine 150 mg 1 in the morning and 2 at night, turmeric, apple cider vinegar, Protonix, probiotic, fiber, gummies, calcium, Lipitor, multivitamin, and aspirin. PQRS: 1. She denies any rheumatoid or osteoarthritis. 2. Height is 5 feet 6 inches, weight is 174, BMI is 28. 3. Blood pressure 140/75, pulse is 69, respirations 16, oxygen sat is 100. 4. Pain score 5/10. 5. Denies dizziness, does not need help walking or standing, has not fallen in the last 3 months. 6. The patient is not on any blood thinners or medicines for hypertension. 7. Opiate therapy is greater than 6 weeks; therefore, an opioid signed contract [address] [address] PAIN MANAGEMENT CONSULTATION Name: OSCAR SOLITARIO Room #: REG CL Tyrone#: [id number] Admission: 03/01/19 Attend Phys: Denita Hunt Discharge: Date of : 48 Report #: [id number] is on the chart. Risk assessment tool is low. Functional assessment is 22/70. 8. Recreational drug use, she denies. She is not a smoker and does not drink alcohol. According to the prescription monitoring system, the patient is due to fill her medications this week. She has a recent drug screen on the chart that is appropriate as well. According to the prescription monitoring system, her PDMP has made her MME, is under 50. PHYSICAL EXAMINATION: GENERAL: This is a well-developed, well-nourished 69-year-old female who appears her stated age, placing her current pain score at 5/10 today. She is alert and orientated, tearful throughout her visit today. HEENT: Normocephalic, atraumatic. Extraocular eye muscles are intact. Mucous membranes are moist. NECK: Without adenopathy or JVD. MUSCULOSKELETAL: Tenderness in the outer part of her bilateral feet, left foot is greater than the right. Complains of restless leg symptoms in the evenings. Her gait is slightly antalgic. She uses the armrest to rise from sitting to standing position. Denies any back pain. ASSESSMENT: 1. Chronic leg pain with a history of complex regional pain syndrome. 2. Neuropathic pain. 3. Failed spinal cord stimulator x2. 4. Management of high risk medications including methadone. We reviewed the fact that opiate medications are being used to provide analgesia adequate to support activities of daily living, not attempting to achieve a specific pain score on the 0-10 Visual Analog Scale. The current opiate medications are providing sufficient analgesia to allow the patient to participate in activities of daily living. The patient is not exhibiting any aberrant behavior suggestive of drug diversion. The patient is not having any adverse reactions to medications. The patient is not suffering from daytime somnolence or mental acuity changes. The patient is managing opiate-induced constipation with appropriate ajpq-tvo-ckiltxh agents and dietary considerations. The patient was counseled on concern for caution with operating a motor vehicle while using opiate medications. PLAN: 1. We discussed treatment options with the patient today. The patient is doing quite well on all of her current medication regimen. She is able to work and carry out all of her activities with sufficient analgesia effects from this medication. We will refill her methadone 5 mg b.i.d., #60 for today for an 8-week release as well as oxycodone 5 mg b.i.d. p.r.n., #60 for today for 8 weeks. These will be e-scribed to her [facility]. [address] [address] PAIN MANAGEMENT CONSULTATION Name: ALTAFOSCAR JOHNSE Room #: REG JORGE LUIS Hansen#: [id number] Admission: 03/01/19 Attend Phys: Denita Hunt Discharge: Date of : 48 Report #: [id number] 2. We will refill her Trileptal 150 mg 3 tablets a day. She finds these very beneficial for her neuropathy. 3. We will check a random drug screen on her next visit. The patient is seen today in collaboration with Dr. Vimal Colorado. <ELECTRONICALLY SIGNED> By: Denita Hunt 03/02/19 1101 110 08 Denita Hunt /nt
== END ==
LOC: PAIN 06:49
DX: M79.672 Pain in left foot (principal); M79.605 Pain in left leg; G62.9 Polyneuropathy, unspecified; Z79.899 Other long term (current) drug therapy

== ENCOUNTER → 2019-07-07 | Outpatient (CLI) | payer OTHER, MEDICARE ==
[~2019-07-07] VITALS: Ht 167.6 cm; Wt 80.7 kg
[2019-07-07 09:40] VITALS: BP 157/90
--- NOTE | 2019-07-07 09:53 | NUR ---
Pain Clinic Assessment: 1. History of Osteoarthritis: DENIES History of Rheumatoid Arthritis: DENIES 2. Height: 5 ft. 6 in. 167.6 cm. Weight: 177.8 lb. oz. 80.650 kg. Patient's BMI: 28.7 3. Vital Signs: BP: 157/90 Pulse: 70 Resp: 16 Temp: 02 Sat: 100 ECG Mon: 4. Pain Intensity: 5 5. Fall Risk: Dizziness: N Needs help standing or walking: N Fallen in the last 3 months: N Fall risk comments: 6. Patient on Blood Thinner: None 7. History of Hypertension: N 8. Opioid Therapy greater than 6 weeks: Y Opiate Contract Signed: 09/04/15 9. Risk Assessment Tool Provided: Montse 10. Functional Assessment Tool: 11. Recreational Drug Use: Never Drug Type: Tobacco Use: Never Smoker Tobacco Type: Amount or Packs/day: How Many Years: Alcohol Use: No Frequency: Quant:
--- NOTE | 2019-07-07 14:41 | HPC ---
[facility] [address] [place] [address] PAIN MANAGEMENT CONSULTATION Name: OSCAR SOLITARIO Room #: REG [facility] MClaire.#: [id number] Admission: 07/07/19 Attend Phys: Denita Hunt Discharge: Date of : 48 Report #: [id number] THIS REPORT FOR: cc: OVIDIO BRIGGS Physician not on staff Denita Hunt ~ CC: Vimal Colorado MD DATE OF SERVICE: 07/07/2019 CHIEF COMPLAINT: Chronic left foot pain. HISTORY OF PRESENT ILLNESS: This is a very pleasant 69-year-old female who returns to the pain clinic today for a refill of her medications. Today, She reports her pain score at 5/10, which is slightly elevated for her per her report. She has been working at [employer] during this COVID virus outbreak. 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 She says by the end of the day her feet are hurting quite substantial, but when she is able to get home, take her medication and elevate her feet, her pain decreases again. She is very thankful for the job, working 40 hours a week is more than she would like. She is hopeful after the virus has subsided she will be able to stay on working at least part-time. The patient reports that her pain is a sharp, burning pain, especially with walking and standing. She has been able to take less of her oxycodone on a daily basis and still has her 8-week prescription left. She does take her methadone as scheduled twice a day. She denies constipation. ALLERGIES: No known drug allergies. CURRENT LIST OF MEDICATIONS: Oxycodone 5 mg p.r.n., methadone 5 mg b.i.d., omega-3, oxcarbazepine 150 mg 1 in the morning and 2 at night, turmeric, apple cider vinegar, Protonix, probiotic, fiber, calcium, Lipitor, multivitamin, and aspirin. PQRS: 1. She denies any rheumatoid or osteoarthritis. 2. Height is 5 feet 6 inches, weight is 177, BMI is 28. 3. Vital signs 157/90, pulse is 70, respirations 16, oxygen sat is 100. 4. Pain score is 5/10. 5. Denies dizziness, does not need help walking or standing, has not fallen in the last 3 months. 6. The patient is not on any blood thinners or medicine for hypertension. Her opioid therapy is greater than 6 weeks; therefore, an opioid signed contract is on the chart. 7. Risk assessment tool is low. Functional assessment is . [address] [address] PAIN MANAGEMENT CONSULTATION Name: ALTAFOSCAR CONDON Room #: REG CL Tyrone#: [id number] Admission: 07/07/19 Attend Phys: Denita Hunt Discharge: Date of : 48 Report #: [id number] 8. Recreational drug use, she denies. She is not a smoker and does not drink alcohol. According to the prescription monitoring system, the patient is filling appropriately for her medications. She is past due to fill her methadone today. She has not filled her 8-week oxycodone according to the PDMP as well as her pharmacy. Her current morphine milligram equivalent is less than 50 MMEs per day. PHYSICAL EXAMINATION: GENERAL: This is a well-developed, well-nourished 69-year-old female who appears her stated age, placing her current pain score at 5/10. She is alert and orientated. HEENT: Normocephalic, atraumatic. Extraocular eye muscles are intact. Mucous membranes are moist. MUSCULOSKELETAL: She has tenderness in her bilateral feet, greater on the left than the right. She walks with a slightly antalgic gait. Her lower extremity strength judged to be 5/5 in all major muscle groups. She is able to rise from sitting to standing using the armrests. ASSESSMENT: 1. Chronic leg pain with history of complex regional pain syndrome. 2. Neuropathic pain. 3. Failed spinal cord stimulator. 4. Management of high risk medications under written agreement. We reviewed the fact that opiate medications are being used to provide analgesia adequate to support activities of daily living, not attempting to achieve a specific pain score on the 0-10 Visual Analog Scale. The current opiate medications are providing sufficient analgesia to allow the patient to participate in activities of daily living. The patient is not exhibiting any aberrant behavior suggestive of drug diversion. The patient is not having any adverse reactions to medications. The patient is not suffering from daytime somnolence or mental acuity changes. The patient is managing opiate-induced constipation with appropriate tavq-ude-vjrxvop agents and dietary considerations. The patient was counseled on concern for caution with operating a motor vehicle while using opiate medications. PLAN: 1. We discussed treatment options with the patient today. The patient reports she is doing quite well despite working 40 hours per week at [employer]. She does have significant pain when she leaves work because she is on her feet all day, but the pain does subside when she is able to get home and take her one oxycodone as well as her methadone prior to bedtime and elevate her legs. Today, she would like refills of her medication. We discussed that she is not filling all of her oxycodone and taking these very sparingly that we will allow [facility] [address] [place] [address] PAIN MANAGEMENT CONSULTATION Name: OSCAR SOLITARIO Room #: REG CL Yuliya.#: [id number] Admission: 07/07/19 Attend Phys: Denita Hunt Discharge: Date of : 48 Report #: [id number] her, the 8-week prescription that is currently at the pharmacy and we will send her a script for 4-week only decreasing her overall 3-month supply by 60 pills. The patient verbally understands this. She feels that she will be able to get by on her current regimen without difficulty. 2. Scripts sent for methadone 5 mg b.i.d., #60 for today 4-week and 8-week release as well as oxycodone 5 mg for 4-week release. 3. The patient continues to find her Trileptal very beneficial in decreasing the burning pain in her feet. We will refill this prescription with 150 mg 1 in the morning and 2 at night, quantity 90 with 2 additional refills. 4. The patient is seen in collaboration with Dr. Vimal Colorado today. The patient will return in 3 months or as needed for medication. <ELECTRONICALLY SIGNED> By: Denita Hunt 07/07/19 1441 1057 1223 Denita Hunt /alysha
== END ==
LOC: PAIN 07-05 08:25
DX: M79.672 Pain in left foot (principal); M79.609 Pain in unspecified limb; F11.20 Opioid dependence, uncomplicated; M79.2 Neuralgia and neuritis, unspecified; Z96.82 Presence of neurostimulator; Z79.899 Other long term (current) drug therapy

== ENCOUNTER → 2019-09-30 | Outpatient (CLI) | payer OTHER, MEDICARE ==
[~2019-09-30] VITALS: Ht 167.6 cm; Wt 80.6 kg
[~2019-09-30] MED LIST changes: +MAGNESIUM250 M1 PO; +REQUIP 0.25 M0.25 M1 PO
[2019-09-30 09:40] VITALS: BP 147/86
--- NOTE | 2019-09-30 09:52 | NUR ---
Pain Clinic Assessment: 1. History of Osteoarthritis: Not Applicable History of Rheumatoid Arthritis: DENIES 2. Height: 5 ft. 6 in. 167.6 cm. Weight: 177.6 lb. oz. 80.559 kg. Patient's BMI: 28.7 3. Vital Signs: BP: 147/86 Pulse: 70 Resp: 16 Temp: 02 Sat: 98 ECG Mon: 4. Pain Intensity: 5 5. Fall Risk: Dizziness: N Needs help standing or walking: N Fallen in the last 3 months: N Fall risk comments: 6. Patient on Blood Thinner: None 7. History of Hypertension: N 8. Opioid Therapy greater than 6 weeks: Y Opiate Contract Signed: 09/04/15 9. Risk Assessment Tool Provided: LOW RISK 0/3 10. Functional Assessment Tool: 11. Recreational Drug Use: Never Drug Type: Tobacco Use: Never Smoker Tobacco Type: Amount or Packs/day: How Many Years: Alcohol Use: No Frequency: Quant:
--- NOTE | 2019-09-30 12:47 | HPC ---
[facility] [place] [address] [place] [address] PAIN MANAGEMENT CONSULTATION Name: OSCAR SOLITARIO Room #: REG JORGE LUIS Yuliya.#: [id number] Admission: 09/30/19 Attend Phys: Denita Hunt Discharge: Date of : 48 Report #: [id number] THIS REPORT FOR: cc: OVIDIO BRIGGS Physician not on staff Denita Hunt ~ CC: Vimal Colorado MD DATE OF SERVICE: 09/30/2019 CHIEF COMPLAINT: Chronic left foot pain. HISTORY OF PRESENT ILLNESS: This is a pleasant 69-year-old female who returns to the pain clinic today for refill of her medications that she uses to help treat her ongoing neuropathic pain as a result of complex regional pain syndrome in her left leg particularly. She does report that she had a stress fracture in her left foot that caused significant pain that developed when she was working at [employer]. She did work several weeks in the boot then her back started hurting causing increased pain. She is off work at this time and her pain has slowly relieved. She is back to rating her pain at 5/10, which is an average pain score for her. She feels that her pain is worse after walking and standing for prolonged periods of time and if she elevates her leg as well as takes her methadone. She feels that has been beneficial. She does report that she takes oxycodone only on an as needed basis and does not need a prescription for that today. The patient does complain of increased restless legs syndrome symptoms at night. She says that it is difficult for her legs to calm down. They are jerky and she feels like something is crawling inside. She is wondering if there is medication that may help with this. She also denies any problems with daytime somnolence or constipation at this time. ALLERGIES: No known drug allergies. CURRENT LIST OF MEDICATIONS: Magnesium, oxycodone 5 mg p.r.n., methadone 5 mg b.i.d., omega-3, oxcarbazepine 150 mg in the morning and 300 at night, turmeric apple cider vinegar, Protonix, probiotic, fiber, calcium, Lipitor, multivitamin and aspirin. PQRS: 1. She denies rheumatoid or osteoarthritis. 2. Height is 5 feet 6 inches, weight is 177, BMI is 28. 3. Vital signs 147/86, pulse is 70, respirations 16, oxygen sat is 98. 4. Pain score is 5/10. 5. Denies dizziness, does not need help walking or standing, [place] [address] PAIN MANAGEMENT CONSULTATION Name: OSCAR SOLITARIO Room #: REG Debra Hansen#: [id number] Admission: 09/30/19 Attend Phys: Denita Hunt Discharge: Date of : 48 Report #: [id number] the last 3 months. The patient is not on any blood thinners or medicine for hypertension. Her opioid therapy is greater than 6 weeks; therefore, an opioid signed contract is on the chart. Risk assessment tool is low. Functional assessment is 38/70. 6. Recreational drug use, she denies. She is not a smoker and does not drink alcohol. According to the prescription monitoring system, the patient is filling appropriately for her medications in a timely fashion. She is due to fill these medications this weekend. PHYSICAL EXAMINATION: GENERAL: This is a well-developed, well-nourished, well-hydrated 69-year-old female who appears her stated age, placing her current pain score at 5/10 today. HEENT: Normocephalic, atraumatic. Extraocular eye muscles are intact. She is wearing a mask. MUSCULOSKELETAL: She walks with a slightly antalgic gait. She has pain in her left foot with no swelling, no edema noted. Her lower extremity strength judged to be 5/5 in all major muscle groups. She does have a slightly antalgic gait. ASSESSMENT: 1. Chronic leg pain with history of complex regional pain syndrome. 2. Neuropathic pain. 3. Failed spinal cord stimulator. 4. Recent stress fracture of the left foot, healed. 5. Management of high risk medications under terms of written opioid agreement. 6. Restless legs syndrome. PLAN: 1. We discussed treatment options with the patient today. The patient finds her medications are beneficial, rarely using her oxycodone. Today, she is stating she only needs 1 prescription of that for the total of 3 months. We will have Dr. Vimal Cloorado send electronically the methadone 5 mg b.i.d. for today, 4-week and 8-week as well as oxycodone 5 mg, #60 for 1 month. 2. The patient does complain of restless legs syndrome especially at night. We will trial ropinirole 0.25 mg. The patient instructed to take 1 tablet at night for 3 nights. If this does relieve some of her symptoms, she is to continue at that dose. If she notices they are still problematic, I have instructed the patient to take 2 tablets at bedtime. The patient to call and report if this medication is not helpful. 3. We will refill her oxcarbazepine 150 mg 1 in the morning and 2 at night, quantity 90 with 2 additional refills as well. This has been beneficial with helping her neuropathic pain from her complex regional pain syndrome. 4. The patient is seen in collaboration today with Dr. Vimal Colorado. [facility] [address] [place] [address] PAIN MANAGEMENT CONSULTATION Name: OSCAR SOLITARIO Room #: REG CL Tyrone#: [id number] Admission: 09/30/19 Attend Phys: Denita Hunt Discharge: Date of : 48 Report #: [id number] patient will return in 3 months. At that time, we will repeat a random drug screen on this patient. <ELECTRONICALLY SIGNED> By: Denita Hunt 09/30/19 [id number] Denita Hunt /nt
== END ==
LOC: PAIN 06:53
PROVIDERS: ATTEND Clinical Nurse Specialist Adult Health
DX: M79.672 Pain in left foot (principal); Z79.899 Other long term (current) drug therapy; Z79.891 Long term (current) use of opiate analgesic

== ENCOUNTER → 2020-01-10 | Outpatient (CLI) | payer OTHER, MEDICARE ==
[~2020-01-10] VITALS: Ht 167.6 cm; Wt 78.0 kg
--- NOTE | ~2020-01-10 | HPC ---
[facility] [place] [address] PAIN MANAGEMENT CONSULTATION Name: OSCAR SOLITARIO Room #: REG JORGE LUIS Dwyer.#: [id number] Admission: 01/10/20 Attend Phys: Vimal Colorado MD Discharge: Date of : 48 Report #: [id number] CC: Sabiha Estrada DATE OF SERVICE: 01/10/2020 Followup visit for medication management of chronic intractable pain. 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 She has been on an opioid agreement under terms established by our clinic and has signed that agreement. She has periodically required to undergo urine drug screen, which we will do today to make sure her medications correlate with what we prescribe for her. We reviewed her medication on the prescription drug monitoring program as well and there are no unexpected entries. Without pain medication, her pain would be much more severe. Without pain medication, she does not feel that she could work 40 hours a week at the age of 69 at [employer] on concrete floors. She is very grateful for this benefit. She denies side effects. She is able to think cognitively and she is able to perform manual tasks without difficulties. She denies side effects. She understands that opioids are dangerous drugs in the wrong hands and carefully monitors her medicines and safeguards them. We also provide medication for restless leg syndrome. She takes co-analgesics and Trileptal, which provides pain relief for her neuropathic pain. Her history of chronic pain is well-documented throughout the record here. She has had complex regional pain syndrome with 12 separate surgeries on her foot. PHYSICAL EXAMINATION: GENERAL: She is pleasant, alert and oriented, without signs of depression or anxiety. She is wearing a mask due to COVID restrictions. VITAL SIGNS: Her blood pressure 156/82, heart rate 60, respirations 16, O2 sat 100. She moves easily from sitting to standing position, ambulates without difficulty. The patient's BMI is 27.8. Pain intensity 6/10. She denies falls. She is able to ambulate easily out of the clinic. MUSCULOSKELETAL: Examination of the legs reveals minimal discomfort today, although she complains of a pain intensity of 6, which is a chronic number for her. Opioid risk score is 0. Functional assessment score 38. She denies tobacco and alcohol. IMPRESSION: 1. Chronic intractable pain with complex regional pain syndrome. 2. Management of high risk medications under terms of written opioid agreement. PLAN: Follow up in 3 months. Medications were renewed electronically. By: [id number] Vimal Colorado MD /alysha
[2020-01-10 13:59] VITALS: BP 156/82
--- NOTE | 2020-01-10 14:16 | NUR ---
Pain Clinic Assessment: 1. History of Osteoarthritis: Not Applicable History of Rheumatoid Arthritis: DENIES 2. Height: 5 ft. 6 in. 167.6 cm. Weight: 172.0 lb. oz. 78.019 kg. Patient's BMI: 27.8 3. Vital Signs: BP: 156/82 Pulse: 60 Resp: 16 Temp: 02 Sat: 100 ECG Mon: 4. Pain Intensity: 6 5. Fall Risk: Dizziness: N Needs help standing or walking: N Fallen in the last 3 months: N Fall risk comments: 6. Patient on Blood Thinner: None 7. History of Hypertension: N 8. Opioid Therapy greater than 6 weeks: Y Opiate Contract Signed: 09/04/15 9. Risk Assessment Tool Provided: LOW RISK 0/3 10. Functional Assessment Tool: 11. Recreational Drug Use: Never Drug Type: Tobacco Use: Never Smoker Tobacco Type: Amount or Packs/day: How Many Years: Alcohol Use: No Frequency: Quant:
== END ==
LOC: PAIN 07:11
PROVIDERS: ATTEND Anesthesiology Pain Medicine
DX: G89.4 Chronic pain syndrome (principal); Z79.891 Long term (current) use of opiate analgesic

== ENCOUNTER → 2020-05-11 | Outpatient (CLI) | payer OTHER ==
[~2020-05-11] VITALS: Ht 167.6 cm; Wt 77.6 kg
[2020-05-11 10:28] VITALS: BP 151/80
--- NOTE | 2020-05-11 10:32 | NUR ---
Pain Clinic Assessment: 1. History of Osteoarthritis: Not Applicable History of Rheumatoid Arthritis: DENIES 2. Height: 5 ft. 6 in. 167.6 cm. Weight: 171.0 lb. oz. 77.565 kg. Patient's BMI: 27.6 3. Vital Signs: BP: 151/80 Pulse: 61 Resp: 14 Temp: 02 Sat: 99 ECG Mon: 4. Pain Intensity: 0 5. Fall Risk: Dizziness: N Needs help standing or walking: N Fallen in the last 3 months: N Fall risk comments: 6. Patient on Blood Thinner: None 7. History of Hypertension: N 8. Opioid Therapy greater than 6 weeks: Y Opiate Contract Signed: 09/04/15 9. Risk Assessment Tool Provided: LOW RISK 0/3 10. Functional Assessment Tool: 11. Recreational Drug Use: Never Drug Type: Tobacco Use: Never Smoker Tobacco Type: Amount or Packs/day: How Many Years: Alcohol Use: Yes Frequency: Weekly Quant: WINE
== END ==
LOC: PAIN 06:59
PROVIDERS: ATTEND Clinical Nurse Specialist Adult Health
DX: G89.29 Other chronic pain (principal); G62.9 Polyneuropathy, unspecified; M96.1 Postlaminectomy syndrome, not elsewhere classified; F11.20 Opioid dependence, uncomplicated; Z88.8 Allergy status to other drugs, medicaments and biological substances; Z79.899 Other long term (current) drug therapy

== ENCOUNTER → 2020-09-21 | Outpatient (CLI) | payer OTHER ==
[~2020-09-21] VITALS: Ht 167.6 cm; Wt 78.1 kg
[~2020-09-21] MED LIST changes: +NEURONTIN 300M300 M2 PO; +OMEPRAZOLE 20 M20 M1 PO; -PROTONIX40 M1 PO
[2020-09-21 09:20] VITALS: BP 146/71
--- NOTE | 2020-09-21 09:41 | NUR ---
Pain Clinic Assessment: 1. History of Osteoarthritis: Not Applicable History of Rheumatoid Arthritis: DENIES 2. Height: 5 ft. 6 in. 167.6 cm. Weight: 172.2 lb. oz. 78.109 kg. Patient's BMI: 27.8 3. Vital Signs: BP: 146/71 Pulse: 63 Resp: 16 Temp: 02 Sat: 100 ECG Mon: 4. Pain Intensity: 2-9 5. Fall Risk: Dizziness: N Needs help standing or walking: N Fallen in the last 3 months: N Fall risk comments: 6. Patient on Blood Thinner: None 7. History of Hypertension: N 8. Opioid Therapy greater than 6 weeks: Y Opiate Contract Signed: 09/04/15 9. Risk Assessment Tool Provided: LOW RISK 0/3 10. Functional Assessment Tool: 11. Recreational Drug Use: Never Drug Type: Tobacco Use: Never Smoker Tobacco Type: Amount or Packs/day: How Many Years: Alcohol Use: Yes Frequency: Quant:
== END ==
LOC: PAIN 06:55
PROVIDERS: ATTEND Clinical Nurse Specialist Adult Health
DX: G89.4 Chronic pain syndrome (principal); M79.671 Pain in right foot; M79.672 Pain in left foot; M79.604 Pain in right leg; M79.605 Pain in left leg; G62.9 Polyneuropathy, unspecified; Z79.891 Long term (current) use of opiate analgesic; Z79.899 Other long term (current) drug therapy; Z72.89 Other problems related to lifestyle; Z79.82 Long term (current) use of aspirin

== ENCOUNTER → 2021-02-26 | Outpatient (CLI) | payer OTHER ==
[~2021-02-26] VITALS: Ht 167.6 cm; Wt 76.9 kg
[~2021-02-26] MED LIST changes: +B COMPLEX1 EACH PO; +COENZYME Q-1030 MG PO; +CYTO RALA30 GM PO; +K2 PLUS D3 TAB1 EACH PO; +MAGNESIUM GLYCINATE; +SUPER THERAVIT1 EACH PO; +VITAMIN A10000 UNI3
[2021-02-26 12:29] VITALS: BP 121/85
--- NOTE | 2021-02-26 12:31 | NUR ---
Pain Clinic Assessment: 1. History of Osteoarthritis: Not Applicable History of Rheumatoid Arthritis: DENIES 2. Height: 5 ft. 6 in. 167.6 cm. Weight: 169.6 lb. oz. 76.930 kg. Patient's BMI: 27.4 3. Vital Signs: BP: 121/85 Pulse: 68 Resp: 20 Temp: 02 Sat: 98 ECG Mon: 4. Pain Intensity: 5 5. Fall Risk: Dizziness: N Needs help standing or walking: N Fallen in the last 3 months: N Fall risk comments: 6. Patient on Blood Thinner: None 7. History of Hypertension: N 8. Opioid Therapy greater than 6 weeks: Y Opiate Contract Signed: 09/04/15 9. Risk Assessment Tool Provided: LOW RISK 0/3 10. Functional Assessment Tool: 11. Recreational Drug Use: Never Drug Type: Tobacco Use: Never Smoker Tobacco Type: Amount or Packs/day: How Many Years: Alcohol Use: Yes Frequency: Weekly Quant: 2 / WEEKLY
== END ==
LOC: PAIN 10:34
PROVIDERS: ATTEND Clinical Nurse Specialist Adult Health
DX: G89.29 Other chronic pain (principal); M79.673 Pain in unspecified foot; Z88.8 Allergy status to other drugs, medicaments and biological substances; Z79.4 Long term (current) use of insulin; Z79.82 Long term (current) use of aspirin; Z79.899 Other long term (current) drug therapy